=== PATIENT | female | born 1960 | race Caucasian/White ===

== ENCOUNTER → 2016-03-16 | Outpatient (REF) | payer OTHER ==
[2016-03-19 14:50] LABS: CONTROL LINE HPYORI INT CTR LINE PRESENT
== END ==
LOC: M LAB REF 11:51
PROVIDERS: ATTEND Nurse Practitioner Adult Health
DX: R10.13 Epigastric pain (principal)

== ENCOUNTER 2016-03-17 17:12 | Emergency (ER) | payer BC, OTHER ==
[2016-03-17] MEDS ORDERED: ASPIRIN 81 MG CHEW TABLET As Ordered ONE (18:00)
[2016-03-17 18:15] LABS: INR 0.9
[2016-03-17 18:18] LABS: BASO % 0.5 % (0.0-1.0); EOS # 0.2 K/mm3 (0.0-0.50); EOS % 2.8 % (0.0-3.0); LARGE UNSTAINED CELL # 0.1 K/mm3 (0.0-0.4); LARGE UNSTAINED CELL % 1.5 % (0.0-4.0); LYMPH # 1.3 K/mm3 (1.5-4.5); LYMPH % 18.2 % (24.0-44.0); MEAN CORPUSCULAR HEMOGLOBIN 29.6 pg (27.0-33.0); MEAN CORPUSCULAR HGB CONC 35.8 g/dl (32.0-36.5); MEAN CORPUSCULAR VOLUME 82.7 fl (80.0-96.0); MONO # 0.4 K/mm3 (0.0-0.8); MONO % 5.7 % (0.0-5.0); NEUTROPHILS # 5.3 K/mm3 (1.8-7.7); NEUTROPHILS % 71.4 % (36.0-66.0); PLATELET COUNT, AUTOMATED 196 k/mm3 (150-450); RED CELL DISTRIBUTION WIDTH 12.7 % (11.5-14.5); WHITE BLOOD COUNT 7.4 K/mm3 (4.0-10.0)
[2016-03-17 18:35] LABS: ANION GAP 8 MEQ/L (8-16); BLOOD UREA NITROGEN 15 MG/DL (7-18); CALCIUM LEVEL 9.6 MG/DL (8.5-10.1); CARBON DIOXIDE LEVEL 31 MEQ/L (21-32); CHLORIDE LEVEL 98 MEQ/L (98-107); CREATININE FOR GFR 0.71 MG/DL (0.55-1.02); GLOMERULAR FILTRATION RATE > 60.0 (>51); GLUCOSE, FASTING 107 MG/DL (70-105); MAGNESIUM LEVEL 2.2 MG/DL (1.8-2.4); PHOSPHORUS LEVEL 3.1 MG/DL (2.5-4.9); POTASSIUM SERUM 3.6 MEQ/L (3.5-5.1); SODIUM LEVEL 137 MEQ/L (136-145)
--- NOTE | 2016-03-17 19:12 | REP ---
CHEST, TWO VIEWS: HISTORY: Chest pain. Linear densities are present in the lower lobes consistent with atelectasis or scar. The heart is normal in size. The pulmonary vasculature is normal in appearance. The bony structure is intact. IMPRESSION: Bibasilar atelectasis or scar. Signed by Sammy Zapata MD 03/17/2016 07:28 P
[2016-03-17] MEDS ORDERED: KETOROLAC 30 MG/ML VIAL (J1885) As Ordered ONE (19:36)
--- NOTE | 2016-03-17 20:27 | EDDOCDS ---
Physician Documentation [facility] Name: Sherin Hurley Age: 55 yrs Sex: Female : 1960 Arrival Date: 03/17/2016 Time: 17:12 Bed TR3 Private MD: Moreno Disposition: 03/17/16 19:57 Discharged to Home/Self Care. Impression: Chest pain, unspecified, Pleurisy. - Condition is Stable. - Discharge Instructions: Nonspecific Chest Pain, Pleurisy. - Prescriptions for Naprosyn 500 mg Oral Tablet - take 1 tablet by ORAL route 2 times per day take with food; 30 tablet. - Medication Reconciliation, Local Pharmacy Hours form. - Follow up: Moreno; When: 2 - 3 days; Reason: Recheck today's complaints, Continuance of care. - Problem is an ongoing problem. - Symptoms have improved. Historical: - Allergies: Augmentin; Lipitor (elevated liver enzymes); - Home Meds: 1. quenipril 40mg nightly 2. hctz 5 mg daily 3. enfranil 25mg nightly 4. vitamin d3 1000 units daily 5. omeprazole 40 mg Oral cpDR 1 cap 2 times per day - PMHx: GERD; OCD; Hypertension; Hypercholesterolemia; elevated liver enzymes with lipitor; - PSHx: Tonsillectomy; Tubal ligation; meniscectomy; - Social history: Smoking status: Patient states was never smoker of tobacco. No barriers to communication noted, The patient speaks fluent Swedish, Speaks appropriately for age. - Family history: Not pertinent. - : The pt / caregiver states he / she is not on anticoagulants. Home medication list is obtained from the patient. - Exposure Risk Screening:: None identified. Vital Signs: 03/17 17:13 BP 202 / 88; Pulse 95; Resp 18; Temp 99.1; Pulse Ox 99% ; Weight 76.66 kg / 169.01 lbs; cmb Height 5 ft. 1 in. (154.94 cm); Pain 8/10; 17:43 BP 119 / 63 (auto/); mk4 17:43 Pulse 86 MON; Pulse Ox 96% ; mk4 17:58 BP 137 / 67 (auto/); mk4 17:58 Pulse 82 MON; Pulse Ox 96% ; mk4 18:12 BP 149 / 80 (auto/); mk4 18:13 Pulse 88 MON; Pulse Ox 95% ; mk4 18:16 BP 73 / 41 (auto/); mk4 18:16 Pulse 68 MON; Pulse Ox 94% ; mk4 18:19 Pulse 64 MON; Pulse Ox 98% ; mk4 18:20 BP 96 / 52 (auto/); mk4 18:24 Pulse 74 MON; Pulse Ox 96% ; mk4 18:25 BP 117 / 61 (auto/); mk4 18:28 BP 119 / 69 (auto/); mk4 18:28 Pulse 74 MON; Pulse Ox 92% ; mk4 20:17 BP 116 / 64; Pulse 79; Resp 18; Temp 98.1(O); Pulse Ox 96% on R/A; Pain 3/10; rosaline 17:13 Body Mass Index 31.93 (76.66 kg, 154.94 cm) cmb MDM: 17:28 ECG WITH READING ER PHYS+CARDIAG ordered. EDMS 17:43 Aspirin Chewable Tablet 324 mg PO once ordered. ke 17:43 Nitrostat 0.4 mg Sublingual every 5 minutes; hold if SBP<90mmHg.Document Pain Score ke Response to Each Dose x3 ordered. 17:43 Bonding Machine Tender/Pulse Ox/q 30 min VS ordered. ke 17:43 IV Saline Lock ordered. ke 17:43 Rhythm Strip to chart ordered. ke 17:43 Undress patient appropriately for examination ordered. ke 17:44 B-Type Natiuretic Peptide Ordered. EDMS 17:44 Basic Metabolic Profile Ordered. EDMS 17:44 CBC with Diff Ordered. EDMS 17:44 Cardiac Injury Profile Ordered. EDMS 17:44 Prothrombin Time Profile\E\INR Ordered. EDMS 17:44 Troponin Ordered. EDMS 17:44 Magnesium Level Ordered. EDMS 17:44 Phosphorous Level Ordered. EDMS 17:44 Chest, 2 View (pa\E\lat) Ordered. EDMS 18:14 Financial registration complete. gjb 18:19 NS 0.9% 1000 ml IV at bolus once ordered. ke 18:37 Basic Metabolic Profile Reviewed. ke 18:37 CBC with Diff Reviewed. ke 18:37 B-Type Natiuretic Peptide Reviewed. ke 18:37 Prothrombin Time Profile\E\INR Reviewed. ke 18:37 Troponin Reviewed. ke 18:37 Magnesium Level Reviewed. ke 18:37 Phosphorous Level Reviewed. ke 18:38 Basic Metabolic Profile Reviewed. ke 18:38 Cardiac Injury Profile Reviewed. ke 18:38 Troponin Reviewed. ke 18:38 Magnesium Level Reviewed. ke 18:38 Phosphorous Level Reviewed. ke 19:20 Chest, 2 View (pa\E\lat) Reviewed. ke 19:33 ketorolac 30 mg IVP once ordered. ke 19:57 [facility] Payment Agreement was scanned into [employer] and attached to record. gjb Administered Medications: 06:10 Drug: Nitrostat 0.4 mg [Nitrostat 0.4 mg sublingual tablet (1 tabs)] Route: Sublingual; mk4 18:22 Follow up: pt became very nauseated and diaphoretic, felt faint, b/p 73/41 reported to [facility] PAGE reinoso and IV bolus started 18:02 Drug: Aspirin 324 mg [aspirin 81 mg chewable tablet (4 tabs)] Route: PO; mk4 18:21 Drug: NS 0.9% 1000 ml [sodium chloride 0.9 % intravenous solution] Route: IV; Rate: mk4 bolus; Site: right antecubital; 19:15 Follow up: IV Status: Completed infusion; IV Intake: 1000ml js15 19:40 Drug: ketorolac 30 mg [ketorolac 30 mg/mL (1 mL) injection solution (1 mL)] Route: IVP; js15 Site: right antecubital; Signatures: Dispatcher [employer] EDMS Sujatha Rodriguez, Ángel Chirinos RN, CARDIAC SURGEON CARDIAC SURGEON Amairani Terrell RN RN mk4 Jeannette Coombs RN RN af2 Beck, Gabriela gj Erica Lindsay RN js15 The chart was reviewed and I authenticate all verbal orders and agree with the evaluation and treatment provided.Attachments: 19:57 [facility] Payment Agreement gjb MTDD
--- NOTE | 2016-03-17 20:27 | EDDOCDS ---
Nurse's Notes [facility] Name: Sherin Toribio Age: 55 yrs Sex: Female : 1960 Arrival Date: 03/17/2016 Time: 17:12 Bed TR3 Private MD: Moreno Diagnosis: Chest pain, unspecified;Pleurisy Presentation: 03/17 17:17 Presenting complaint: Patient states: right sided chest pain that radiates to back srm since . saw PMD yesterday had ekg and it was unchanged. upper her dose of omeprazole to 40 mg yesterday. Aspirin was not taken prior to arrival. Adult Sepsis Screening: The patient does not have new or worsening altered mentation. Patient's respiratory rate is less than 22. Systolic blood pressure is greater than 100. Patient has a qSOFA score of 0- Negative Sepsis Screen. Suicide/Homicide risk assessment- the patient denies having any suicidal and/or homicidal ideations and does not present with any other emotional, behavioral or mental health complaints. Status: Patient is not a director of women's services or dependent. Transition of care: patient was not received from another setting of care. 17:17 Acuity: [place] Level 3 [facility] 17:17 Method Of Arrival: Wheelchair [facility] 17:22 Presenting complaint: Patient states: severe belching. [facility] Triage Assessment: 17:21 General: Appears uncomfortable, Behavior is appropriate for age, cooperative. Pain: srm Pain currently is 5 out of 10 on a pain scale. At worst was 8 out of 10 on a pain scale. The patient is triaged at the bedside. See Assessment in Nurses Notes section of ED record. Cardiovascular: Chest pain is described as Pain is 8 out of 10 on a pain scale. radiates to right back episodes are continuous began night (5 days). 20:24 Pt Declines HIV testing. af2 Historical: - Allergies: Augmentin; Lipitor (elevated liver enzymes); - Home Meds: 1. quenipril 40mg nightly 2. hctz 5 mg daily 3. enfranil 25mg nightly 4. vitamin d3 1000 units daily 5. omeprazole 40 mg Oral cpDR 1 cap 2 times per day - PMHx: GERD; OCD; Hypertension; Hypercholesterolemia; elevated liver enzymes with lipitor; - PSHx: Tonsillectomy; Tubal ligation; meniscectomy; - Social history: Smoking status: Patient states was never smoker of tobacco. No barriers to communication noted, The patient speaks fluent Venezuelan, Speaks appropriately for age. - Family history: Not pertinent. - : The pt / caregiver states he / she is not on anticoagulants. Home medication list is obtained from the patient. - Exposure Risk Screening:: None identified. Screenin:13 Screening information is obtained from the patient. Fall risk: No risks identified. mk4 Assistance ADL's: requires no assistance with activities of daily living. Abuse/DV Screen: The patient / caregiver reports he/she is: not in a situation that causes fear, pain or injury. Nutritional screening: No deficits noted. Advance Directives: Currently, there is a health care proxy, svetlana toribio. There is no active DNR order. There is a living will, but a copy is not available at this time. There is no Power of Aoc Plans Intelligence Officer. Advance directive information does not know if advance directives have been placed in a prior [facility] medical record. home support is adequate. Assessment: 18:02 General: Appears in no apparent distress, comfortable, Behavior is cooperative. Pain: mk4 Location: chest Pain began 2-3 days ago. Cardiovascular: Rhythm is regular. Respiratory: Airway is patent Respiratory effort is even, unlabored, Respiratory pattern is regular. Derm: Skin is intact, is healthy with good turgor. 18:13 Pain: Pain currently is 7 out of 10 on a pain scale. mk4 18:13 General: pt became very diaphoretic and b/p dropped after 1 dose of nitro WOOL BROKER aware and mk4 orders for a bolus received. 18:25 General: Appears uncomfortable. Pain: Location: chest Pain currently is 6 out of 10 on mk4 a pain scale. Cardiovascular: Rhythm is regular. 18:25 General: pt states pain still 6/10 , IV infusing right ac pt states feeling better. mk4 19:30 General: Appears in no apparent distress, comfortable. Pain: Location: chest Pain js15 currently is 4 out of 10 on a pain scale. Neurological: Level of Consciousness is awake, alert, obeys commands, Oriented to person, place, time. Cardiovascular: Rhythm is regular. Respiratory: Airway is patent Respiratory effort is even, unlabored, Respiratory pattern is regular, symmetrical. Derm: Skin is normal. 20:23 General: Appears in no apparent distress, comfortable, Behavior is cooperative, pt af2 a&ox3, rr even and unlabored, speech is clear, walks with upright steady gait.. Vital Signs: 17:13 BP 202 / 88; Pulse 95; Resp 18; Temp 99.1; Pulse Ox 99% ; Weight 76.66 kg; Height 5 ft. cmb 1 in. (154.94 cm); Pain 8/10; 17:43 BP 119 / 63 (auto/); mk4 17:43 Pulse 86 MON; Pulse Ox 96% ; mk4 17:58 BP 137 / 67 (auto/); mk4 17:58 Pulse 82 MON; Pulse Ox 96% ; mk4 18:12 BP 149 / 80 (auto/); mk4 18:13 Pulse 88 MON; Pulse Ox 95% ; mk4 18:16 BP 73 / 41 (auto/); mk4 18:16 Pulse 68 MON; Pulse Ox 94% ; mk4 18:19 Pulse 64 MON; Pulse Ox 98% ; mk4 18:20 BP 96 / 52 (auto/); mk4 18:24 Pulse 74 MON; Pulse Ox 96% ; mk4 18:25 BP 117 / 61 (auto/); mk4 18:28 BP 119 / 69 (auto/); mk4 18:28 Pulse 74 MON; Pulse Ox 92% ; mk4 20:17 BP 116 / 64; Pulse 79; Resp 18; Temp 98.1(O); Pulse Ox 96% on R/A; Pain 3/10; rosaline 17:13 Body Mass Index 31.93 (76.66 kg, 154.94 cm) cmb Vitals: 17:13 Log In Time: March 17, 2016 at 17:12. RN notified that patient meets Red Flag cmb criteria. ED Course: 17:13 Patient visited by Cassidy Lewis. cmb 17:13 [place]arnham is Private Physician. cmb 17:13 Patient moved to Waiting cmb 17:18 Triage Initiated srm 17:23 Patient moved to 5 srm 17:30 [facility] ke 17:30 Patient visited by Ángel Reinoso FNP. ke 17:30 Patient visited by Ángel Reinoso FNP. ke 17:34 EKG done. (by ED staff). Reviewed by Ángel RAMESH. ct3 17:36 Patient visited by Daly Monique PCA. ct3 17:36 Accompanied by Family Member, Patient has correct armband on for positive ct3 identification. Placed in gown. Bed in low position. Call light in reach. Side rails up X2. cafeteria monitor on. Pulse ox on. NIBP on. 18:01 Phosphorous Level Sent. mk4 18:01 Magnesium Level Sent. mk4 18:01 B-Type Natiuretic Peptide Sent. mk4 18:01 Basic Metabolic Profile Sent. mk4 18:01 CBC with Diff Sent. mk4 18:01 Cardiac Injury Profile Sent. mk4 18:01 Prothrombin Time Profile\E\INR Sent. mk4 18:02 Troponin Sent. mk4 18:02 Inserted saline lock: 20 gauge in right antecubital area and blood collected. mk4 18:02 No procedures done that require assistance. mk4 18:05 Patient visited by Ángel Reinoso FNP. ke 18:28 Patient visited by Ángel Reinoso FNP. ke 18:37 Patient visited by Ángel Reinoso FNP. ke 19:18 Chest, 2 View (pa\E\lat) Returned. EDMS 19:20 Patient visited by Ángel Reinoso FNP. ke 19:53 Patient visited by Ángel Reinoso FNP. ke 19:57 Moreno is Referral Physician. ke 19:57 [facility] Payment Agreement was scanned into [employer] and attached to record. gjb 19:58 Patient name changed from Sherin\S\\S\Toribio\S\ to Sherin\S\ \S\Toribio. EDMS 20:15 Chest, 2 View (pa\E\lat) Returned. EDMS 20:18 Patient visited by Olga Christian PCA. rosaline 20:23 Discontinued IV lock intact, bleeding controlled, pressure dressing applied, No af2 redness/swelling at site. 20:24 The patient / caregiver is instructed regarding the plan of care and ED course. af2 20:25 Patient visited by Jeannette Coombs RN. af2 20:25 Patient moved to TR3 af2 Administered Medications: 06:10 Drug: Nitrostat 0.4 mg [Nitrostat 0.4 mg sublingual tablet (1 tabs)] Route: Sublingual; mk4 18:22 Follow up: pt became very nauseated and diaphoretic, felt faint, b/p 73/41 reported to [facility] PAGE reinoso and IV bolus started 18:02 Drug: Aspirin 324 mg [aspirin 81 mg chewable tablet (4 tabs)] Route: PO; 4 18:21 Drug: NS 0.9% 1000 ml [sodium chloride 0.9 % intravenous solution] Route: IV; Rate: mk4 bolus; Site: right antecubital; 19:15 Follow up: IV Status: Completed infusion; IV Intake: 1000ml js15 19:40 Drug: ketorolac 30 mg [ketorolac 30 mg/mL (1 mL) injection solution (1 mL)] Route: IVP; js15 Site: right antecubital; Intake: 19:15 IV: 1000.00ml; Total: 1000.00ml. js15 Order Results: Lab Order: B-Type Natiuretic Peptide; SPEC'M 03/17/16 17:57 Test: BRAIN NATRIURETIC PEPTIDE; Value: 6.3; Range: <100; Units: PG/ML; Status: F Lab Order: Basic Metabolic Profile; SPEC'M 03/17/16 17:57 Test: GLUCOSE, FASTING; Value: 107; Range: 70-105; Abnormal: Above high normal; Units: MG/DL; Status: F Test: BLOOD UREA NITROGEN; Value: 15; Range: 7-18; Units: MG/DL; Status: F Test: CREATININE FOR GFR; Value: 0.71; Range: 0.55-1.02; Units: MG/DL; Status: F Test: GLOMERULAR FILTRATION RATE; Value: > 60.0; Range: >51; Status: F Test: SODIUM LEVEL; Value: 137; Range: 136-145; Units: MEQ/L; Status: F Test: POTASSIUM SERUM; Value: 3.6; Range: 3.5-5.1; Units: MEQ/L; Status: F Test: CHLORIDE LEVEL; Value: 98; Range: 98-107; Units: MEQ/L; Status: F Test: CARBON DIOXIDE LEVEL; Value: 31; Range: 21-32; Units: MEQ/L; Status: F Test: ANION GAP; Value: 8; Range: 8-16; Units: MEQ/L; Status: F Test: CALCIUM LEVEL; Value: 9.6; Range: 8.5-10.1; Units: MG/DL; Status: F Test Note: ; Units are mL/min/1.73 m2 Chronic Kidney Disease Staging per NKF: Stage I & II GFR >=60 Normal to Mildly Decreased Stage III GFR 30-59 Moderately Decreased Stage IV GFR 15-29 Severely Decreased Stage V GFR <15 Very Little GFR Left ESRD GFR <15 on TUBE DISPATCHER Lab Order: CBC with Diff; SPEC'M 03/17/16 17:57 Test: WHITE BLOOD COUNT; Value: 7.4; Range: 4.0-10.0; Units: K/mm3; Status: F Test: RED BLOOD COUNT; Value: 4.56; Range: 4.00-5.40; Units: M/mm3; Status: F Test: HEMOGLOBIN; Value: 13.5; Range: 12.0-16.0; Units: g/dl; Status: F Test: HEMATOCRIT; Value: 37.7; Range: 36.0-47.0; Units: %; Status: F Test: MEAN CORPUSCULAR VOLUME; Value: 82.7; Range: 80.0-96.0; Units: fl; Status: F Test: MEAN CORPUSCULAR HEMOGLOBIN; Value: 29.6; Range: 27.0-33.0; Units: pg; Status: F Test: MEAN CORPUSCULAR HGB CONC; Value: 35.8; Range: 32.0-36.5; Units: g/dl; Status: F Test: RED CELL DISTRIBUTION WIDTH; Value: 12.7; Range: 11.5-14.5; Units: %; Status: F Test: PLATELET COUNT, AUTOMATED; Value: 196; Range: 150-450; Units: k/mm3; Status: F Test: NEUTROPHILS %; Value: 71.4; Range: 36.0-66.0; Abnormal: Above high normal; Units: %; Status: F Test: LYMPH %; Value: 18.2; Range: 24.0-44.0; Abnormal: Below low normal; Units: %; Status: F Test: MONO %; Value: 5.7; Range: 0.0-5.0; Abnormal: Above high normal; Units: %; Status: F Test: EOS %; Value: 2.8; Range: 0.0-3.0; Units: %; Status: F Test: BASO %; Value: 0.5; Range: 0.0-1.0; Units: %; Status: F Test: LARGE UNSTAINED CELL %; Value: 1.5; Range: 0.0-4.0; Units: %; Status: F Test: NEUTROPHILS #; Value: 5.3; Range: 1.8-7.7; Units: K/mm3; Status: F Test: LYMPH #; Value: 1.3; Range: 1.5-4.5; Abnormal: Below low normal; Units: K/mm3; Status: F Test: MONO #; Value: 0.4; Range: 0.0-0.8; Units: K/mm3; Status: F Test: EOS #; Value: 0.2; Range: 0.0-0.50; Units: K/mm3; Status: F Test: BASO #; Value: 0.0; Range: 0.0-0.2; Units: K/mm3; Status: F Test: LARGE UNSTAINED CELL #; Value: 0.1; Range: 0.0-0.4; Units: K/mm3; Status: F Lab Order: Cardiac Injury Profile; SPEC'M 03/17/16 17:57 Test: CPK CREATINE PHOSPHOKINASE; Value: 106; Range: 26-192; Units: U/L; Status: F Test: CK-MB VALUE MASS; Value: 1.6; Range: 0.0-3.6; Units: NG/ML; Status: F Test: MB/CK RELATIVE INDEX; Value: 1.50; Range: < OR =4; Status: F Test Note: ; DIAGNOSIS CRITERIA MMB ng/ml Relative Index (RI) NON-AMI < or = 5 N/A RAM ZONE > 5 < or = 4 AMI > 5 > 4 Lab Order: Prothrombin Time Profile\E\INR; SPEC'M 03/17/16 17:57 Test: PROTHROMBIN TIME; Value: 12.3; Range: 12.3-14.5; Units: SECONDS; Status: F Test: INR; Value: 0.90; Status: F Test Note: ; THERAPUTIC HUMAN INR VALUES INDICATIONS NORMAL RANGES PROPHYLAXIS/TREATMENT OF: VENOUS THROMBOSIS 2.0-3.0 PULMONARY EMBOLISM 2.0-3.0 PREVENTION OF SYSTEMIC EMBOLISM FROM: TISSUE HEART VALVES 2.0-3.0 ACUTE MYOCARDIAL INFARCTION 2.0-3.0 VALVULAR HEART DISEASE 2.0-3.0 ATRIAL FIBRILLATION 2.0-3.0 MECHANICAL VALVES(HIGH RISK) 2.5-3.5 RECURRENT MYOCARDIAL INFARCTION 2.5-3.5 Lab Order: Troponin; SPEC'M 03/17/16 17:57 Test: TROPONIN I; Value: < 0.02; Range: < 0.10; Units: NG/ML; Status: F Test Note: ; Troponin I Reference Interval for Playful Data LOCI: 99th Percentile= 0.00-0.045 ng/ml Risk Stratification: <= 0.10 ng/ml Decreased Risk for Adverse Clinical Events. 0.10-1.50 ng/ml Increased Risk for Adverse Clinical Events. Evaluation of additional criterion and/or repeat testing in 2-6 hours is suggested to rule out myocardial damage. >= 1.50 ng/ml Indicative of Myocardial Injury. Lab Order: Magnesium Level; SPEC'M 03/17/16 17:57 Test: MAGNESIUM LEVEL; Value: 2.2; Range: 1.8-2.4; Units: MG/DL; Status: F Lab Order: Phosphorous Level; SPEC'M 03/17/16 17:57 Test: PHOSPHORUS LEVEL; Value: 3.1; Range: 2.5-4.9; Units: MG/DL; Status: F Radiology Order: Chest, 2 View (pa\E\lat) Test: Chest, 2 View (pa\E\lat) REASON FOR EXAMINATION: Chest Pain; CHEST, TWO VIEWS:; ; HISTORY: Chest pain.; ; Linear densities are present in the lower lobes consistent with atelectasis or; scar. The heart is normal in size. The pulmonary vasculature is normal in; appearance. The bony structure is intact.; ; IMPRESSION:; ; Bibasilar atelectasis or scar.; ; ; Signed by; Sammy Zapata MD 03/17/2016 07:28 P; Outcome: 19:57 Discharge ordered by Provider. ke 20:24 Discharge Assessment: Patient awake, alert and oriented x 3. No cognitive and/or af2 functional deficits noted. Patient verbalized understanding of disposition instructions. patient administered narcotics - no. The following High Risk Discharge criteria are identified: None. Discharged to home ambulatory, with significant other. Condition: stable. Discharge instructions given to patient, Instructed on discharge instructions, follow up and referral plans. medication usage, Demonstrated understanding of instructions, medications, Pt was receptive of discharge instructions/ teaching. No special radiology studies were completed. Property :Personal belongings accompany Pt. 20:27 Patient left the ED. af2 Signatures: Dispatcher [employer] EDMS Sujatha Rodriguez, RN RN Ángel Hernandez, GENERAL OFFICE ASSOCIATE GENERAL OFFICE ASSOCIATE Olga Hong, MANAGER LAND MANAGER LAND rosaline Monique, Daly, MANAGER LAND MANAGER LAND ct3 Cassidy Lewis Margaret RN RN mk4 Jeannette CoombsRN RN af2 Erica LindsayRN RN js15 Jennifer Elizabeth Corrections: (The following items were deleted from the chart) 18:30 18:13 Pain: Pain currently is 7 out of 10 on a pain scale. mk4 mk4 18:30 18:25 Pain: Location: chest Pain currently is 6 out of 10 on a pain scale. 4 mk4 MTDD
--- NOTE | 2016-03-19 08:19 | ECGEPIP ---
Stationary ECG Study [facility] - ED Test Date: 2016-03-17 Pat Name: MARK WEBB Department: Room: - Gender: F Conference Organizer: ct : 1960 Requested By: Adi Kurtz Order Number: [id number] Reading MD: Adi Goodson Measurements Intervals [place] Rate: 80 P: 2 DE: 134 QRS: 9 QRSD: 99 T: 9 QT: 375 QTc: 433 Interpretive Statements SINUS RHYTHM TYPE 3 BRUGADA PATTERN (NON-DIAGNOSTIC) NO PRIORS Electronically Signed On 03-19-2016 8:19:30 EST by Adi Goodson
--- NOTE | 2016-03-19 21:27 | EDDOCDS ---
Physician Documentation [facility] Name: Sherin Hurley Age: 55 yrs Sex: Female : 1960 Arrival Date: 03/17/2016 Time: 17:12 Bed TR3 Private MD: Moreno Disposition: 03/17/16 19:57 Discharged to Home/Self Care. Impression: Chest pain, unspecified, Pleurisy. - Condition is Stable. - Discharge Instructions: Nonspecific Chest Pain, Pleurisy. - Prescriptions for Naprosyn 500 mg Oral Tablet - take 1 tablet by ORAL route 2 times per day take with food; 30 tablet. - Medication Reconciliation, Local Pharmacy Hours form. - Follow up: Moreno; When: 2 - 3 days; Reason: Recheck today's complaints, Continuance of care. - Problem is an ongoing problem. - Symptoms have improved. Historical: - Allergies: Augmentin; Lipitor (elevated liver enzymes); - Home Meds: 1. quenipril 40mg nightly 2. hctz 5 mg daily 3. enfranil 25mg nightly 4. vitamin d3 1000 units daily 5. omeprazole 40 mg Oral cpDR 1 cap 2 times per day - PMHx: GERD; OCD; Hypertension; Hypercholesterolemia; elevated liver enzymes with lipitor; - PSHx: Tonsillectomy; Tubal ligation; meniscectomy; - Social history: Smoking status: Patient states was never smoker of tobacco. No barriers to communication noted, The patient speaks fluent [place], Speaks appropriately for age. - Family history: Not pertinent. - : The pt / caregiver states he / she is not on anticoagulants. Home medication list is obtained from the patient. - Exposure Risk Screening:: None identified. Vital Signs: 03/17 17:13 BP 202 / 88; Pulse 95; Resp 18; Temp 99.1; Pulse Ox 99% ; Weight 76.66 kg / 169.01 lbs; cmb Height 5 ft. 1 in. (154.94 cm); Pain 8/10; 17:43 BP 119 / 63 (auto/); mk4 17:43 Pulse 86 MON; Pulse Ox 96% ; mk4 17:58 BP 137 / 67 (auto/); mk4 17:58 Pulse 82 MON; Pulse Ox 96% ; mk4 18:12 BP 149 / 80 (auto/); mk4 18:13 Pulse 88 MON; Pulse Ox 95% ; mk4 18:16 BP 73 / 41 (auto/); mk4 18:16 Pulse 68 MON; Pulse Ox 94% ; mk4 18:19 Pulse 64 MON; Pulse Ox 98% ; mk4 18:20 BP 96 / 52 (auto/); mk4 18:24 Pulse 74 MON; Pulse Ox 96% ; mk4 18:25 BP 117 / 61 (auto/); mk4 18:28 BP 119 / 69 (auto/); mk4 18:28 Pulse 74 MON; Pulse Ox 92% ; mk4 20:17 BP 116 / 64; Pulse 79; Resp 18; Temp 98.1(O); Pulse Ox 96% on R/A; Pain 3/10; rosaline 17:13 Body Mass Index 31.93 (76.66 kg, 154.94 cm) cmb MDM: 17:28 ECG WITH READING ER PHYS+CARDIAG ordered. EDMS 17:43 Aspirin Chewable Tablet 324 mg PO once ordered. ke 17:43 Nitrostat 0.4 mg Sublingual every 5 minutes; hold if SBP<90mmHg.Document Pain Score ke Response to Each Dose x3 ordered. 17:43 Anesthesiologist/Pulse Ox/q 30 min VS ordered. ke 17:43 IV Saline Lock ordered. ke 17:43 Rhythm Strip to chart ordered. ke 17:43 Undress patient appropriately for examination ordered. ke 17:44 B-Type Natiuretic Peptide Ordered. EDMS 17:44 Basic Metabolic Profile Ordered. EDMS 17:44 CBC with Diff Ordered. EDMS 17:44 Cardiac Injury Profile Ordered. EDMS 17:44 Prothrombin Time Profile\E\INR Ordered. EDMS 17:44 Troponin Ordered. EDMS 17:44 Magnesium Level Ordered. EDMS 17:44 Phosphorous Level Ordered. EDMS 17:44 Chest, 2 View (pa\E\lat) Ordered. EDMS 18:14 Financial registration complete. gjb 18:19 NS 0.9% 1000 ml IV at bolus once ordered. ke 18:37 Basic Metabolic Profile Reviewed. ke 18:37 CBC with Diff Reviewed. ke 18:37 B-Type Natiuretic Peptide Reviewed. ke 18:37 Prothrombin Time Profile\E\INR Reviewed. ke 18:37 Troponin Reviewed. ke 18:37 Magnesium Level Reviewed. ke 18:37 Phosphorous Level Reviewed. ke 18:38 Basic Metabolic Profile Reviewed. ke 18:38 Cardiac Injury Profile Reviewed. ke 18:38 Troponin Reviewed. ke 18:38 Magnesium Level Reviewed. ke 18:38 Phosphorous Level Reviewed. ke 19:20 Chest, 2 View (pa\E\lat) Reviewed. ke 19:33 ketorolac 30 mg IVP once ordered. ke 19:57 [facility] Payment Agreement was scanned into [employer] and attached to record. [facility] 03/18 11:37 T-Sheet-- Draft Copy was scanned into [employer] and attached to record. gb 11:38 ECG/EKG was scanned into [employer] and attached to record. gb Administered Medications: 03/17 06:10 Drug: Nitrostat 0.4 mg [Nitrostat 0.4 mg sublingual tablet (1 tabs)] Route: Sublingual; mk4 18:22 Follow up: pt became very nauseated and diaphoretic, felt faint, b/p 73/41 reported to [facility] PAGE reinoso and IV bolus started 18:02 Drug: Aspirin 324 mg [aspirin 81 mg chewable tablet (4 tabs)] Route: PO; mk4 18:21 Drug: NS 0.9% 1000 ml [sodium chloride 0.9 % intravenous solution] Route: IV; Rate: mk4 bolus; Site: right antecubital; 19:15 Follow up: IV Status: Completed infusion; IV Intake: 1000ml js15 19:40 Drug: ketorolac 30 mg [ketorolac 30 mg/mL (1 mL) injection solution (1 mL)] Route: IVP; js15 Site: right antecubital; Signatures: Dispatcher [employer] EDMS Sujatha Rodriguez, RN RN [facility] Wanda Vazquez, Reg Reg Ángel Reinoso, BRICK VENEER MAKER BRICK VENEER MAKER Amairani Terrell RN RN mk4 Jeannette Coombs RN RN Jennifer Sosa [facility] Erica Lindsay RN js15 The chart was reviewed and I authenticate all verbal orders and agree with the evaluation and treatment provided.Attachments: 19:57 [facility] Payment Agreement [facility] 03/18 11:37 T-Sheet-- Draft Copy gb 11:38 ECG/EKG gb Chart Complete MTDD
--- NOTE | 2016-03-19 21:27 | EDDOCDS ---
Physician Documentation [facility] Name: Sherin Hurley Age: 55 yrs Sex: Female : 1960 Arrival Date: 03/17/2016 Time: 17:12 Bed TR3 Private MD: Moreno Disposition: 03/17/16 19:57 Discharged to Home/Self Care. Impression: Chest pain, unspecified, Pleurisy. - Condition is Stable. - Discharge Instructions: Nonspecific Chest Pain, Pleurisy. - Prescriptions for Naprosyn 500 mg Oral Tablet - take 1 tablet by ORAL route 2 times per day take with food; 30 tablet. - Medication Reconciliation, Local Pharmacy Hours form. - Follow up: Moreno; When: 2 - 3 days; Reason: Recheck today's complaints, Continuance of care. - Problem is an ongoing problem. - Symptoms have improved. Historical: - Allergies: Augmentin; Lipitor (elevated liver enzymes); - Home Meds: 1. quenipril 40mg nightly 2. hctz 5 mg daily 3. enfranil 25mg nightly 4. vitamin d3 1000 units daily 5. omeprazole 40 mg Oral cpDR 1 cap 2 times per day - PMHx: GERD; OCD; Hypertension; Hypercholesterolemia; elevated liver enzymes with lipitor; - PSHx: Tonsillectomy; Tubal ligation; meniscectomy; - Social history: Smoking status: Patient states was never smoker of tobacco. No barriers to communication noted, The patient speaks fluent [place], Speaks appropriately for age. - Family history: Not pertinent. - : The pt / caregiver states he / she is not on anticoagulants. Home medication list is obtained from the patient. - Exposure Risk Screening:: None identified. Vital Signs: 03/17 17:13 BP 202 / 88; Pulse 95; Resp 18; Temp 99.1; Pulse Ox 99% ; Weight 76.66 kg / 169.01 lbs; cmb Height 5 ft. 1 in. (154.94 cm); Pain 8/10; 17:43 BP 119 / 63 (auto/); mk4 17:43 Pulse 86 MON; Pulse Ox 96% ; mk4 17:58 BP 137 / 67 (auto/); mk4 17:58 Pulse 82 MON; Pulse Ox 96% ; mk4 18:12 BP 149 / 80 (auto/); mk4 18:13 Pulse 88 MON; Pulse Ox 95% ; mk4 18:16 BP 73 / 41 (auto/); mk4 18:16 Pulse 68 MON; Pulse Ox 94% ; mk4 18:19 Pulse 64 MON; Pulse Ox 98% ; mk4 18:20 BP 96 / 52 (auto/); mk4 18:24 Pulse 74 MON; Pulse Ox 96% ; mk4 18:25 BP 117 / 61 (auto/); mk4 18:28 BP 119 / 69 (auto/); mk4 18:28 Pulse 74 MON; Pulse Ox 92% ; mk4 20:17 BP 116 / 64; Pulse 79; Resp 18; Temp 98.1(O); Pulse Ox 96% on R/A; Pain 3/10; rosaline 17:13 Body Mass Index 31.93 (76.66 kg, 154.94 cm) cmb MDM: 17:28 ECG WITH READING ER PHYS+CARDIAG ordered. EDMS 17:43 Aspirin Chewable Tablet 324 mg PO once ordered. ke 17:43 Nitrostat 0.4 mg Sublingual every 5 minutes; hold if SBP<90mmHg.Document Pain Score ke Response to Each Dose x3 ordered. 17:43 Generator Worker/Pulse Ox/q 30 min VS ordered. ke 17:43 IV Saline Lock ordered. ke 17:43 Rhythm Strip to chart ordered. ke 17:43 Undress patient appropriately for examination ordered. ke 17:44 B-Type Natiuretic Peptide Ordered. EDMS 17:44 Basic Metabolic Profile Ordered. EDMS 17:44 CBC with Diff Ordered. EDMS 17:44 Cardiac Injury Profile Ordered. EDMS 17:44 Prothrombin Time Profile\E\INR Ordered. EDMS 17:44 Troponin Ordered. EDMS 17:44 Magnesium Level Ordered. EDMS 17:44 Phosphorous Level Ordered. EDMS 17:44 Chest, 2 View (pa\E\lat) Ordered. EDMS 18:14 Financial registration complete. gjb 18:19 NS 0.9% 1000 ml IV at bolus once ordered. ke 18:37 Basic Metabolic Profile Reviewed. ke 18:37 CBC with Diff Reviewed. ke 18:37 B-Type Natiuretic Peptide Reviewed. ke 18:37 Prothrombin Time Profile\E\INR Reviewed. ke 18:37 Troponin Reviewed. ke 18:37 Magnesium Level Reviewed. ke 18:37 Phosphorous Level Reviewed. ke 18:38 Basic Metabolic Profile Reviewed. ke 18:38 Cardiac Injury Profile Reviewed. ke 18:38 Troponin Reviewed. ke 18:38 Magnesium Level Reviewed. ke 18:38 Phosphorous Level Reviewed. ke 19:20 Chest, 2 View (pa\E\lat) Reviewed. ke 19:33 ketorolac 30 mg IVP once ordered. ke 19:57 [facility] Payment Agreement was scanned into [employer] and attached to record. [facility] 03/18 11:37 T-Sheet-- Draft Copy was scanned into [employer] and attached to record. gb 11:38 ECG/EKG was scanned into [employer] and attached to record. gb Administered Medications: 03/17 06:10 Drug: Nitrostat 0.4 mg [Nitrostat 0.4 mg sublingual tablet (1 tabs)] Route: Sublingual; mk4 18:22 Follow up: pt became very nauseated and diaphoretic, felt faint, b/p 73/41 reported to [facility] PAGE reinoso and IV bolus started 18:02 Drug: Aspirin 324 mg [aspirin 81 mg chewable tablet (4 tabs)] Route: PO; mk4 18:21 Drug: NS 0.9% 1000 ml [sodium chloride 0.9 % intravenous solution] Route: IV; Rate: mk4 bolus; Site: right antecubital; 19:15 Follow up: IV Status: Completed infusion; IV Intake: 1000ml js15 19:40 Drug: ketorolac 30 mg [ketorolac 30 mg/mL (1 mL) injection solution (1 mL)] Route: IVP; js15 Site: right antecubital; Signatures: Dispatcher [employer] EDMS Sujatha Rodriguez, RN RN [facility] Wanda Vazquez, Reg Reg Ángel Reinoso, LOCATION MANAGER LOCATION MANAGER Amairani Terrell RN RN mk4 Jeannette Coombs RN RN Jennifer Sosa [facility] Erica Lindsay RN js15 The chart was reviewed and I authenticate all verbal orders and agree with the evaluation and treatment provided.Attachments: 19:57 [facility] Payment Agreement [facility] 03/18 11:37 T-Sheet-- Draft Copy gb 11:38 ECG/EKG gb Chart Complete MTDD
--- NOTE | 2016-03-19 21:27 | EDDOCDS ---
Nurse's Notes [facility] Name: Mark Hurley Age: 55 yrs Sex: Female : 1960 Arrival Date: 03/17/2016 Time: 17:12 Bed TR3 Private MD: Moreno Diagnosis: Chest pain, unspecified;Pleurisy Presentation: 03/17 17:17 Presenting complaint: Patient states: right sided chest pain that radiates to back srm since . saw PMD yesterday had ekg and it was unchanged. upper her dose of omeprazole to 40 mg yesterday. Aspirin was not taken prior to arrival. Adult Sepsis Screening: The patient does not have new or worsening altered mentation. Patient's respiratory rate is less than 22. Systolic blood pressure is greater than 100. Patient has a qSOFA score of 0- Negative Sepsis Screen. Suicide/Homicide risk assessment- the patient denies having any suicidal and/or homicidal ideations and does not present with any other emotional, behavioral or mental health complaints. 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 Transition of care: patient was not received from another setting of care. 17:17 Acuity: [place] Level 3 [facility] 17:17 Method Of Arrival: Wheelchair [facility] 17:22 Presenting complaint: Patient states: severe belching. [facility] Triage Assessment: 17:21 General: Appears uncomfortable, Behavior is appropriate for age, cooperative. Pain: srm Pain currently is 5 out of 10 on a pain scale. At worst was 8 out of 10 on a pain scale. The patient is triaged at the bedside. See Assessment in Nurses Notes section of ED record. Cardiovascular: Chest pain is described as Pain is 8 out of 10 on a pain scale. radiates to right back episodes are continuous began night (5 days). 20:24 Pt Declines HIV testing. af2 Historical: - Allergies: Augmentin; Lipitor (elevated liver enzymes); - Home Meds: 1. quenipril 40mg nightly 2. hctz 5 mg daily 3. enfranil 25mg nightly 4. vitamin d3 1000 units daily 5. omeprazole 40 mg Oral cpDR 1 cap 2 times per day - PMHx: GERD; OCD; Hypertension; Hypercholesterolemia; elevated liver enzymes with lipitor; - PSHx: Tonsillectomy; Tubal ligation; meniscectomy; - Social history: Smoking status: Patient states was never smoker of tobacco. No barriers to communication noted, The patient speaks fluent Monegasque, Speaks appropriately for age. - Family history: Not pertinent. - : The pt / caregiver states he / she is not on anticoagulants. Home medication list is obtained from the patient. - Exposure Risk Screening:: None identified. Screenin:13 Screening information is obtained from the patient. Fall risk: No risks identified. mk4 Assistance ADL's: requires no assistance with activities of daily living. Abuse/DV Screen: The patient / caregiver reports he/she is: not in a situation that causes fear, pain or injury. Nutritional screening: No deficits noted. Advance Directives: Currently, there is a health care proxy, svetlana hurley. There is no active DNR order. There is a living will, but a copy is not available at this time. There is no Power of Bridal Consultant. Advance directive information does not know if advance directives have been placed in a prior [facility] medical record. home support is adequate. Assessment: 18:02 General: Appears in no apparent distress, comfortable, Behavior is cooperative. Pain: mk4 Location: chest Pain began 2-3 days ago. Cardiovascular: Rhythm is regular. Respiratory: Airway is patent Respiratory effort is even, unlabored, Respiratory pattern is regular. Derm: Skin is intact, is healthy with good turgor. 18:13 Pain: Pain currently is 7 out of 10 on a pain scale. 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 18:25 General: Appears uncomfortable. Pain: Location: chest Pain currently is 6 out of 10 on mk4 a pain scale. Cardiovascular: Rhythm is regular. 18:25 General: pt states pain still 6/10 , IV infusing right ac pt states feeling better. mk4 19:30 General: Appears in no apparent distress, comfortable. Pain: Location: chest Pain js15 currently is 4 out of 10 on a pain scale. Neurological: Level of Consciousness is awake, alert, obeys commands, Oriented to person, place, time. Cardiovascular: Rhythm is regular. Respiratory: Airway is patent Respiratory effort is even, unlabored, Respiratory pattern is regular, symmetrical. Derm: Skin is normal. 20:23 General: Appears in no apparent distress, comfortable, Behavior is cooperative, pt af2 a&ox3, rr even and unlabored, speech is clear, walks with upright steady gait.. Vital Signs: 17:13 BP 202 / 88; Pulse 95; Resp 18; Temp 99.1; Pulse Ox 99% ; Weight 76.66 kg; Height 5 ft. cmb 1 in. (154.94 cm); Pain 8/10; 17:43 BP 119 / 63 (auto/); mk4 17:43 Pulse 86 MON; Pulse Ox 96% ; mk4 17:58 BP 137 / 67 (auto/); mk4 17:58 Pulse 82 MON; Pulse Ox 96% ; mk4 18:12 BP 149 / 80 (auto/); mk4 18:13 Pulse 88 MON; Pulse Ox 95% ; mk4 18:16 BP 73 / 41 (auto/); mk4 18:16 Pulse 68 MON; Pulse Ox 94% ; mk4 18:19 Pulse 64 MON; Pulse Ox 98% ; mk4 18:20 BP 96 / 52 (auto/); mk4 18:24 Pulse 74 MON; Pulse Ox 96% ; mk4 18:25 BP 117 / 61 (auto/); mk4 18:28 BP 119 / 69 (auto/); mk4 18:28 Pulse 74 MON; Pulse Ox 92% ; mk4 20:17 BP 116 / 64; Pulse 79; Resp 18; Temp 98.1(O); Pulse Ox 96% on R/A; Pain 3/10; rosaline 17:13 Body Mass Index 31.93 (76.66 kg, 154.94 cm) cmb Vitals: 17:13 Log In Time: March 17, 2016 at 17:12. RN notified that patient meets Red Flag cmb criteria. ED Course: 17:13 Patient visited by Cassidy Lewis. cmb 17:13 Bethel is Private Physician. cmb 17:13 Patient moved to Waiting cmb 17:18 Triage Initiated srm 17:23 Patient moved to 5 srm 17:30 [facility] ke 17:30 Patient visited by Ángel Eaton FNP. ke 17:30 Patient visited by Ángel Eaton FNP. ke 17:34 EKG done. (by ED staff). Reviewed by Ángel RAMESH. ct3 17:36 Patient visited by Daly Monique PCA. ct3 17:36 Accompanied by Family Member, Patient has correct armband on for positive ct3 identification. Placed in gown. Bed in low position. Call light in reach. Side rails up X2. fire crew worker on. Pulse ox on. NIBP on. 18:01 Phosphorous Level Sent. mk4 18:01 Magnesium Level Sent. mk4 18:01 B-Type Natiuretic Peptide Sent. mk4 18:01 Basic Metabolic Profile Sent. mk4 18:01 CBC with Diff Sent. mk4 18:01 Cardiac Injury Profile Sent. mk4 18:01 Prothrombin Time Profile\E\INR Sent. mk4 18:02 Troponin Sent. mk4 18:02 Inserted saline lock: 20 gauge in right antecubital area and blood collected. mk4 18:02 No procedures done that require assistance. mk4 18:05 Patient visited by Ángel Eaton FNP. ke 18:28 Patient visited by Ángel Eaton FNP. ke 18:37 Patient visited by Ángel Eaton FNP. ke 19:18 Chest, 2 View (pa\E\lat) Returned. EDMS 19:20 Patient visited by Ángel Eaton FNP. ke 19:53 Patient visited by Ángel Eaton FNP. ke 19:57 Moreno is Referral Physician. ke 19:57 [facility] Payment Agreement was scanned into [employer] and attached to record. gjb 19:58 Patient name changed from Mark\S\\S\Hurley\S\ to Mark\S\ \S\Hurley. EDMS 20:15 Chest, 2 View (pa\E\lat) Returned. EDMS 20:18 Patient visited by Olga Christian PCA. rosaline 20:23 Discontinued IV lock intact, bleeding controlled, pressure dressing applied, No af2 redness/swelling at site. 20:24 The patient / caregiver is instructed regarding the plan of care and ED course. af2 20:25 Patient visited by Jeannette Coombs RN. af2 20:25 Patient moved to 3 af2 03/18 11:37 T-Sheet-- Draft Copy was scanned into [employer] and attached to record. gb 11:38 ECG/EKG was scanned into [employer] and attached to record. gb 03/19 09:00 EKG-ADULT Returned. EDMS Administered Medications: 03/17 06:10 Drug: Nitrostat 0.4 mg [Nitrostat 0.4 mg sublingual tablet (1 tabs)] Route: Sublingual; 4 18:22 Follow up: pt became very nauseated and diaphoretic, felt faint, b/p 73/41 reported to 4 EARLY CHILDHOOD WORKER arleth and IV bolus started 18:02 Drug: Aspirin 324 mg [aspirin 81 mg chewable tablet (4 tabs)] Route: PO; 4 18:21 Drug: NS 0.9% 1000 ml [sodium chloride 0.9 % intravenous solution] Route: IV; Rate: mk4 bolus; Site: right antecubital; 19:15 Follow up: IV Status: Completed infusion; IV Intake: 1000ml js15 19:40 Drug: ketorolac 30 mg [ketorolac 30 mg/mL (1 mL) injection solution (1 mL)] Route: IVP; js15 Site: right antecubital; Intake: 19:15 IV: 1000.00ml; Total: 1000.00ml. js15 Order Results: Lab Order: B-Type Natiuretic Peptide; SPEC'M 03/17/16 17:57 Test: BRAIN NATRIURETIC PEPTIDE; Value: 6.3; Range: <100; Units: PG/ML; Status: F Lab Order: Basic Metabolic Profile; SPEC'M 03/17/16 17:57 Test: GLUCOSE, FASTING; Value: 107; Range: 70-105; Abnormal: Above high normal; Units: MG/DL; Status: F Test: BLOOD UREA NITROGEN; Value: 15; Range: 7-18; Units: MG/DL; Status: F Test: CREATININE FOR GFR; Value: 0.71; Range: 0.55-1.02; Units: MG/DL; Status: F Test: GLOMERULAR FILTRATION RATE; Value: > 60.0; Range: >51; Status: F Test: SODIUM LEVEL; Value: 137; Range: 136-145; Units: MEQ/L; Status: F Test: POTASSIUM SERUM; Value: 3.6; Range: 3.5-5.1; Units: MEQ/L; Status: F Test: CHLORIDE LEVEL; Value: 98; Range: 98-107; Units: MEQ/L; Status: F Test: CARBON DIOXIDE LEVEL; Value: 31; Range: 21-32; Units: MEQ/L; Status: F Test: ANION GAP; Value: 8; Range: 8-16; Units: MEQ/L; Status: F Test: CALCIUM LEVEL; Value: 9.6; Range: 8.5-10.1; Units: MG/DL; Status: F Test Note: ; Units are mL/min/1.73 m2 Chronic Kidney Disease Staging per NKF: Stage I & II GFR >=60 Normal to Mildly Decreased Stage III GFR 30-59 Moderately Decreased Stage IV GFR 15-29 Severely Decreased Stage V GFR <15 Very Little GFR Left ESRD GFR <15 on FRONT END MECHANIC Lab Order: CBC with Diff; SPEC'M 03/17/16 17:57 Test: WHITE BLOOD COUNT; Value: 7.4; Range: 4.0-10.0; Units: K/mm3; Status: F Test: RED BLOOD COUNT; Value: 4.56; Range: 4.00-5.40; Units: M/mm3; Status: F Test: HEMOGLOBIN; Value: 13.5; Range: 12.0-16.0; Units: g/dl; Status: F Test: HEMATOCRIT; Value: 37.7; Range: 36.0-47.0; Units: %; Status: F Test: MEAN CORPUSCULAR VOLUME; Value: 82.7; Range: 80.0-96.0; Units: fl; Status: F Test: MEAN CORPUSCULAR HEMOGLOBIN; Value: 29.6; Range: 27.0-33.0; Units: pg; Status: F Test: MEAN CORPUSCULAR HGB CONC; Value: 35.8; Range: 32.0-36.5; Units: g/dl; Status: F Test: RED CELL DISTRIBUTION WIDTH; Value: 12.7; Range: 11.5-14.5; Units: %; Status: F Test: PLATELET COUNT, AUTOMATED; Value: 196; Range: 150-450; Units: k/mm3; Status: F Test: NEUTROPHILS %; Value: 71.4; Range: 36.0-66.0; Abnormal: Above high normal; Units: %; Status: F Test: LYMPH %; Value: 18.2; Range: 24.0-44.0; Abnormal: Below low normal; Units: %; Status: F Test: MONO %; Value: 5.7; Range: 0.0-5.0; Abnormal: Above high normal; Units: %; Status: F Test: EOS %; Value: 2.8; Range: 0.0-3.0; Units: %; Status: F Test: BASO %; Value: 0.5; Range: 0.0-1.0; Units: %; Status: F Test: LARGE UNSTAINED CELL %; Value: 1.5; Range: 0.0-4.0; Units: %; Status: F Test: NEUTROPHILS #; Value: 5.3; Range: 1.8-7.7; Units: K/mm3; Status: F Test: LYMPH #; Value: 1.3; Range: 1.5-4.5; Abnormal: Below low normal; Units: K/mm3; Status: F Test: MONO #; Value: 0.4; Range: 0.0-0.8; Units: K/mm3; Status: F Test: EOS #; Value: 0.2; Range: 0.0-0.50; Units: K/mm3; Status: F Test: BASO #; Value: 0.0; Range: 0.0-0.2; Units: K/mm3; Status: F Test: LARGE UNSTAINED CELL #; Value: 0.1; Range: 0.0-0.4; Units: K/mm3; Status: F Lab Order: Cardiac Injury Profile; SPEC'M 03/17/16 17:57 Test: CPK CREATINE PHOSPHOKINASE; Value: 106; Range: 26-192; Units: U/L; Status: F Test: CK-MB VALUE MASS; Value: 1.6; Range: 0.0-3.6; Units: NG/ML; Status: F Test: MB/CK RELATIVE INDEX; Value: 1.50; Range: < OR =4; Status: F Test Note: ; DIAGNOSIS CRITERIA MMB ng/ml Relative Index (RI) NON-AMI < or = 5 N/A RAM ZONE > 5 < or = 4 AMI > 5 > 4 Lab Order: Prothrombin Time Profile\E\INR; SPEC'M 03/17/16 17:57 Test: PROTHROMBIN TIME; Value: 12.3; Range: 12.3-14.5; Units: SECONDS; Status: F Test: INR; Value: 0.90; Status: F Test Note: ; THERAPUTIC HUMAN INR VALUES INDICATIONS NORMAL RANGES PROPHYLAXIS/TREATMENT OF: VENOUS THROMBOSIS 2.0-3.0 PULMONARY EMBOLISM 2.0-3.0 PREVENTION OF SYSTEMIC EMBOLISM FROM: TISSUE HEART VALVES 2.0-3.0 ACUTE MYOCARDIAL INFARCTION 2.0-3.0 VALVULAR HEART DISEASE 2.0-3.0 ATRIAL FIBRILLATION 2.0-3.0 MECHANICAL VALVES(HIGH RISK) 2.5-3.5 RECURRENT MYOCARDIAL INFARCTION 2.5-3.5 Lab Order: Troponin; SPEC'M 03/17/16 17:57 Test: TROPONIN I; Value: < 0.02; Range: < 0.10; Units: NG/ML; Status: F Test Note: ; Troponin I Reference Interval for Mempile LOCI: 99th Percentile= 0.00-0.045 ng/ml Risk Stratification: <= 0.10 ng/ml Decreased Risk for Adverse Clinical Events. 0.10-1.50 ng/ml Increased Risk for Adverse Clinical Events. Evaluation of additional criterion and/or repeat testing in 2-6 hours is suggested to rule out myocardial damage. >= 1.50 ng/ml Indicative of Myocardial Injury. Lab Order: Magnesium Level; SPEC'M 03/17/16 17:57 Test: MAGNESIUM LEVEL; Value: 2.2; Range: 1.8-2.4; Units: MG/DL; Status: F Lab Order: Phosphorous Level; SPEC'M 03/17/16 17:57 Test: PHOSPHORUS LEVEL; Value: 3.1; Range: 2.5-4.9; Units: MG/DL; Status: F Radiology Order: EKG-ADULT Test: EKG-ADULT REASON FOR EXAMINATION: right sided chest pain; Stationary ECG Study; [facility] - ED; ; Test Date: 2016-03-17; Pat Name: MARK HURLEY Department:; Room: -; Gender: F Waistline Joiner Lockstitch: ct; : 1960 Requested By: Adi Kurtz; Order Number: [id number] Reading MD: Adi Goodson; Measurements; Intervals [place]; Rate: 80 P: 2; OK: 134 QRS: 9; QRSD: 99 T: 9; QT: 375; QTc: 433; Interpretive Statements; SINUS RHYTHM; TYPE 3 BRUGADA PATTERN (NON-DIAGNOSTIC); NO PRIORS; Electronically Signed On 03-19-2016 8:19:30 EST by Adi Goodson; Radiology Order: Chest, 2 View (pa\E\lat) Test: Chest, 2 View (pa\E\lat) REASON FOR EXAMINATION: Chest Pain; CHEST, TWO VIEWS:; ; HISTORY: Chest pain.; ; Linear densities are present in the lower lobes consistent with atelectasis or; scar. The heart is normal in size. The pulmonary vasculature is normal in; appearance. The bony structure is intact.; ; IMPRESSION:; ; Bibasilar atelectasis or scar.; ; ; Signed by; Sammy Zapata MD 03/17/2016 07:28 P; Outcome: 19:57 Discharge ordered by Provider. ke 20:24 Discharge Assessment: Patient awake, alert and oriented x 3. No cognitive and/or af2 functional deficits noted. Patient verbalized understanding of disposition instructions. patient administered narcotics - no. The following High Risk Discharge criteria are identified: None. Discharged to home ambulatory, with significant other. Condition: stable. Discharge instructions given to patient, Instructed on discharge instructions, follow up and referral plans. medication usage, Demonstrated understanding of instructions, medications, Pt was receptive of discharge instructions/ teaching. No special radiology studies were completed. Property :Personal belongings accompany Pt. 20:27 Patient left the ED. af2 Signatures: Dispatcher [employer] EDMS Sujatha Rodriguez RN RN [facility] Wanda Vazquez, Reg Reg Ángel Eaton, BUSINESS EDITOR BUSINESS EDITOR Olga Hong, SKIP MINER BLASTING SKIP MINER BLASTING rosaline Monique, Daly, SKIP MINER BLASTING SKIP MINER BLASTING ct3 Joshua, Cassidy quinterob Amairani Cuevas RN RN mk4 Jeannette Coombs RN RN af2 Erica Lindsay,MILAGROS RN Jennifer Hernandez Corrections: (The following items were deleted from the chart) 18:30 18:13 Pain: Pain currently is 7 out of 10 on a pain scale. 4 mk4 18:30 18:25 Pain: Location: chest Pain currently is 6 out of 10 on a pain scale. 4 mk4 Chart Complete MTDD
== END 2016-03-17 20:27 | disposition home or self-care (01) ==
LOC: M ED 17:12
DX: R09.1 Pleurisy (principal); R07.89 Other chest pain; I10 Essential (primary) hypertension; K21.9 Gastro-esophageal reflux disease without esophagitis; E78.5 Hyperlipidemia, unspecified; F42.9 Obsessive-compulsive disorder, unspecified; Z79.899 Other long term (current) drug therapy; Z88.8 Allergy status to other drugs, medicaments and biological substances; Z88.1 Allergy status to other antibiotic agents
CPT/HCPCS: 36415; 71020; 80048; 82550; 82553; 83735; 83880; 84100; 85025; 85610; 93005; 93041; 96361; 96374; 99284; J1885

== ENCOUNTER → 2016-04-22 | Outpatient (CLI) | payer BC, OTHER ==
[~2016-04-22] VITALS: Ht 154.9 cm; Wt 77.1 kg
[~2016-04-22] MED LIST: ACCU40TA PO; EFFE75CA75 PO; HYDR12.55 PO; LIDOCAINE 2% INJ 100 MG/5 ML SDV (FOR ANES.) As Ordered ONE; NS 1,000 ML IV SCH; OMEP40CA2 PO; PROPOFOL 200 MG/20 ML VIAL As Ordered ONE; VITA100041 PO
--- NOTE | 2016-04-22 09:54 | ROOR ---
Patient Name: Sherin Hurley Procedure Date: 04/22/2016 9:38 AM Date of : 1960 Age: 55 Room: [facility] Gender: Female Note Status: Finalized Procedure: Upper GI endoscopy + Biopsies Indications: Epigastric abdominal pain Providers: Sherif Sánchez MD Referring MD: ONOFRE VALVERDE JR, MD Requesting Provider: Medicines: Monitored Anesthesia Care Complications: No immediate complications. Procedure: Pre-Anesthesia Assessment: - The heart rate, respiratory rate, oxygen saturations, blood pressure, adequacy of pulmonary ventilation, and response to care were monitored throughout the procedure. The Endoscope was introduced through the mouth, and advanced to the second part of duodenum. The upper GI endoscopy was accomplished without difficulty. The patient tolerated the procedure well. Findings: The Z-line was regular and was found 35 cm from the incisors. A small hiatal hernia was present. No other significant abnormalities were identified in a careful examination of the stomach. Biopsies were taken with a cold forceps in the gastric antrum for Helicobacter pylori testing. The exam of the duodenum was otherwise normal. Impression: - Z-line regular, 35 cm from the incisors. - Small hiatal hernia. - Biopsies were taken with a cold forceps for Helicobacter pylori testing. - The examination was otherwise normal. Recommendation: - Patient has a contact number available for emergencies. The signs and symptoms of potential delayed complications were discussed with the patient. Return to normal activities tomorrow. Written discharge instructions were provided to the patient. - High fiber diet. - Discharge patient to home. - Continue present medications. - Await pathology results. - Telephone GI clinic for pathology results in 1 week. - Return to referring physician. - The findings and recommendations were discussed with the patient's family. Sherif Sánchez MD Sherif Sánchez MD 04/22/2016 9:54:05 AM This report has been signed electronically. Number of Addenda: 0 Note Initiated On: 04/22/2016 9:38 AM Estimated Blood Loss: Estimated blood loss: none.
[2016-04-22 10:20] VITALS: BP 137/86
== END | disposition home or self-care (01) ==
LOC: M OPP 08:40
PROVIDERS: ATTEND Internal Medicine Gastroenterology
DX: R10.13 Epigastric pain (principal); K44.9 Diaphragmatic hernia without obstruction or gangrene; D64.9 Anemia, unspecified; I10 Essential (primary) hypertension; M19.90 Unspecified osteoarthritis, unspecified site; J45.909 Unspecified asthma, uncomplicated; F42.9 Obsessive-compulsive disorder, unspecified; K27.9 Peptic ulcer, site unspecified, unspecified as acute or chronic, without hemorrhage or perforation; R06.83 Snoring; Z79.899 Other long term (current) drug therapy; Z88.0 Allergy status to penicillin; Z88.8 Allergy status to other drugs, medicaments and biological substances

== ENCOUNTER → 2016-09-23 | Outpatient (CLI) | payer BC ==
[~2016-09-23] MED LIST changes: -LIDOCAINE 2% INJ 100 MG/5 ML SDV (FOR ANES.) As Ordered ONE; -NS 1,000 ML IV SCH; -PROPOFOL 200 MG/20 ML VIAL As Ordered ONE; +VITA-182 PO; -VITA100041 PO
--- NOTE | 2016-09-23 09:28 | REPMRS ---
Patient History The patient states she has not had a clinical breast exam in over a year. Patient is postmenopausal. No known family history of cancer. Digital Woman Screen Mammo: September 23, 2016 - Exam #: [id number] Bilateral CC and MLO view(s) were taken. Technologist: Dena Delarosa, Technologist Prior study comparison: July 18, 2015, digital woman screen mammo performed at [facility] [place] [facility]. February 16, 2014, digital woman screen mammo performed at [facility]. FINDINGS: The breast tissue is heterogeneously dense. This may lower the sensitivity of mammography. There has been no change in the appearance of the mammogram from the prior studies. There is a moderate amount of residual fibroglandular tissue which is fairly symmetric. There is no interval development of dominant mass, areas of architectural distortion, or clustered microcalcification typical of malignancy. ASSESSMENT: BI-RADS/ACR category 1 mammogram. Negative. Recommendation Routine screening mammogram in 1 year (for women over age 40). This mammogram was interpreted with the aid of an FDA-approved computer-aided dectection system. Electronically Signed By: Gorge Valentin MD 09/23/16 0931
--- NOTE | 2016-09-24 09:35 | DEXA ---
AP SPINE L1 - L4 1.192 0.0 1.0 LT FEMUR TOTAL 1.086 0.6 1.4 RT FEMUR TOTAL 1.001 -0.1 0.7 TOTAL BODY TOTAL OTHER DUAL FEMUR FRAX* ASSESSMENT Risk factors: None. 10 year probability of fracture Major osteoporotic fracture 6.2 % Hip fracture 0.3 % COMMENTS: Normal bone densitometry of the spine. Normal bone densitometry of the left hip. There is low bone density of the right hip. The density of the spine is decreased 12.0% since 09/24/2011. The density of the left hip has decreased 8.5% since 09/24/2011. The density of the right hip has decreased 11.6% since 09/24/2011. The decreased density of the spine does represent a significant change. The decreased density of the left hip does represent a significant change. The decreased density of the right hip does represent a significant change. FOLLOW-UP: Recommendation for the next bone density exam: 2 years. SONIA
== END ==
LOC: M WHC 08:00
PROVIDERS: ATTEND Internal Medicine
DX: Z12.31 Encounter for screening mammogram for malignant neoplasm of breast (principal); M85.88 Other specified disorders of bone density and structure, other site; M85.851 Other specified disorders of bone density and structure, right thigh; M85.852 Other specified disorders of bone density and structure, left thigh
CPT/HCPCS: 77080; G0202